=== PATIENT | female | born 1955 | race Caucasian/White ===

== ENCOUNTER → 2017-04-09 15:29 | Outpatient (CLI) | payer OTHER, SELFPAY ==
[2014-09-29 06:40] VITALS: BMI 32.8
[2014-09-29 08:24] VITALS: BP 129/74
--- NOTE | 2017-04-09 15:35 | RAD_ITS ---
STUDY: X-RAY - RIGHT SHOULDER REASON FOR EXAM: Female, 61 years old. Bilateral shoulder pain TECHNIQUE: 4 view(s) of the shoulder. COMPARISON: None. FINDINGS: Normal glenohumeral articulation. Normal acromioclavicular joint. Normal acromion. Normal humeral head and visualized proximal humerus. The soft tissue structures are unremarkable. Normal visualized pulmonary apex. RAD/Shoulder min 2 Views IMPRESSION: Normal x-ray examination of the shoulder. Electronically Signed: Amor Rutherford MD, FACR at 10:25 EST , Service support ,
--- NOTE | 2017-04-09 15:35 | RAD_ITS ---
STUDY: X-RAY - LEFT SHOULDER REASON FOR EXAM: Female, 61 years old. Bilateral shoulder pain TECHNIQUE: 3 view(s) of the shoulder. COMPARISON: None. FINDINGS: Normal glenohumeral articulation. Normal acromioclavicular joint. Normal acromion. Normal humeral head and visualized proximal humerus. The soft tissue structures are unremarkable. Normal visualized pulmonary apex. RAD/Shoulder min 2 Views IMPRESSION: Normal x-ray examination of the shoulder. Electronically Signed: Amor Rutherford MD, FACR at 8:27 EST , Service support ,
== END ==
LOC: MTRAD 15:33
PROVIDERS: Family Provider Family Medicine; PCP Family Medicine; Visit Provider Family Medicine
DX: M25.512 Pain in left shoulder (principal); M25.511 Pain in right shoulder
CPT/HCPCS: 73030

== ENCOUNTER 2017-06-18 12:30 | Outpatient (RCR) | payer OTHER, SELFPAY ==
--- NOTE | 2017-04-20 14:50 | HP.PTEVAL_ITS ---
Patient's Visit Information VANITA BRIGGS is a 61 year old F referred to Physical Therapy by Adolph MAHER with a diagnosis of Bilateral shoulder pain. Date of Evaluation: 04/20/17 Physical Therapist: Walter Gonzáles PT, - Visit Plan Frequency: 2x /Week Duration: 4 Weeks Plan: modlaties ,MANUAL THERAPY ,RTC /SCAPULAR STRENGTHENING,POSTURAL EX'S - Subjective Subjective: This 61 y/o female presents to shoulder pain bilateral right greater than left. Symptoms has had pain for month. No mechanism of injury or trauma,incidous onset. Pain shoulder grossly to lateral deltoid. Symptoms ADL' S ,self hygine ,activities above 90 degrees . Pain affects sleeps. Patient affects ability to perform housework tasks. Seen DR recommended PT . Recommended MEDS.Denies parathesia/tingling. SOCAIL: SINGLE. 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 NEUR0: denies pararhesia/ tingling,reflexes 3/3 C5-6-7. CERVICAL ROM: min flexion ,lateral flexion/ rotation mod ,extension mod loss. PALPATION: mild tender AC. AROM: shoulder flexion R 90 degrees pain L-155 degrees,80 R abd 80 degrees with pain,L. 150 degrees ,. PROM: ER R 70 degrees ,L 90 degrees ,IR R- 60 Degrees pain ,L 70 degrees pain. CAPSUAR: mild/mod right ,Left mild. MMT: infraspiantous / supcaularis 4-/5,supraspinaous 4-/5 pain bilateral greater right,. deltoid 3/5 R ,L 3+/5 pain - Special Tests C/S Radiculapathy - Left Upper limb tension test: Negative C/S Radiculapathy - Right Upper limb tension test: Negative C/S Radiculapathy - Left Spurlings: Negative C/S Radiculapathy - Right Spurlings: Negative C/S Radiculapathy - Left Cervical distraction: Negative C/S Radiculapathy - Right Cervical distraction: Negative C/S Radiculapathy - Left Relief test: Negative C/S Radiculapathy - Right Relief test: Negative C/S Radiculapathy - Valsalva: Negative Cervical Sitting: Protrusion - Symptoms During Testing: No effect Cervical Sitting: Protrusion - Symptoms After Testing: No effect Cervical Sitting: Retraction - Mechanical Response: No effect Cervical Sitting: Retraction - Symptoms During Testing: No effect Cervical Sitting: Retraction - Symptoms After Testing: No effect Cervical Sitting: Retraction-Extension - Mechanical Response: No effect Cerv Sitting: Retraction-Extension - Symptoms During Testing: No effect Cerv Sitting: Retraction-Extension - Symptoms After Testing: No effect Cervical Sitting: Sidebend Right - Mechanical Response: No effect Cervical Sitting: Sidebend Right - Symptoms During Testing: No effect Cervical Sitting: Sidebend Right - Symptoms After Testing: No effect Cervical Sitting: Sidebend Left - Mechanical Response: No effect Cervical Sitting: Sidebend Left - Symptoms During Testing: No effect Cervical Sitting: Sidebend Left - Symptoms After Testing: No effect Cervical Sitting: Rotation Right - Symptoms During Testing: No effect Cervical Sitting: Rotation Right - Symptoms After Testing: No effect Cervical Sitting: Rotation Left - Mechanical Response: No effect Cervical Sitting: Rotation Left - Symptoms During Testing: No effect Cervical Sitting: Rotation Left - Symptoms After Testing: No effect Cervical Sitting: Flexion - Symptoms During Testing: No effect Cervical Sitting: Flexion - Symptoms After Testing: No effect R Shoulder External Rotation Lag Test - RC Tear: Negative R Shoulder Supine Impingement Test - RC Tear: Negative R Shoulder Lift Off Test - Subscapular Tear: Negative R Shoulder Drop Sign - IS Test: Negative R Shoulder Empty Can - SS: Positive R Shoulder Neer - Impingement: Positive R Shoulder Schulz Micha - Impingement: Positive R Shoulder Shrug Sign - OA/Adhesive Capsulitis: Positive L Shoulder External Rotation Lag Test - RC Tear: Negative L Shoulder Supine Impingement Test - RC Tear: Negative L Shoulder Lift Off Test - Subscapular Tear: Negative L Shoulder Drop Sign - IS Test: Negative L Shoulder Empty Can - SS: Negative L Shoulder Neer - Impingement: Positive L Shoulder Schul[place]a - Impingement: Positive - Goals Goal 1:: Independant with HEP Goal Time Frame: 4-6 Weeks Goal 2:: Decrease shoulder pain by 50% or greater to improve function and ADL'S with activities above 90 degrees Goal Time Frame: 4-6 Weeks Goal 3:: Patuent to be Independant with posture for ADL'S Goal Time Frame: 4-6 Weeks Goal 4:: Patient incrases AROM 155 degrees flexion/abduction ,ER 80 degrres to improve function with activities above 90 degrees Goal Time Frame: 2-4 Weeks Goal 5:: Patient to increase strength of RTC 4/5 and deltoid by 4-/5 to improve function with ADLS' Goal Time Frame: 4-6 Weeks Goal 6:: Patient be able to perform ADL'S and activities above 90 degrees with min limiations Goal Time Frame: 4-6 Weeks - Rehabilitation Potential Physical Therapy Diagnosis: This patient appears to have possible imingement right worse than left with tendonesis/tendonitis with poor ROM ,pain ,decrease strength and capsular restriction right. thus impairs ADL'S and housework tasks above 90 degrees Rehabilitation Potential: Good - Anticipated Interventions Patient/Client Instruction: Educate patient on: Condition, Plan of Care For the Purpose of:: To decrease pain, To increase ROM, To improve muscle performance and motor function, To improve ability to perform ADL's, To increase tolerance to activity/condition/position, To improve performance and independence with ADL's, To improve ability of physical actions for home/ community/work/leisure, To improve gait and locomotor functions, To improve health of tissue, To decrease soft tissue restriction, To increase flexibility/ ROM, To assume or resume ADL's, To improve ability to perform tasks related to life management, To improve tolerance to ADL's Therapeutic Exercise to Include: Strength training, Postural training, Flexibilty training, via [employer] Balance Mas, Active ROM, Scapular Strength/ Stabilization Comment: RTC For the Purpose of:: To decrease pain, To increase ROM, To improve nutrient delivery to tissue, To increase oxygenation perfusion, To improve muscle performance and motor function, To improve ability to perform ADL's, To increase tolerance to activity/condition/position, To improve ability of physical actions for home/community/work/leisure, To improve health of tissue, To decrease soft tissue restriction, To increase flexibility/ROM, To improve ability to perform tasks related to life management Manual Therapy Techniques to Include: Mobilization For the Purpose of:: To decrease pain, To increase ROM, To improve nutrient delivery to tissue, To increase oxygenation perfusion, To improve health of tissue, To decrease soft tissue restriction, To increase flexibility/ROM TENS: Yes IF ES: Yes Cryotherapy (ice pack, ice massage): Yes Thermo therapy (hot pack): Yes Ultrasound (thermal/non thermal): Yes For the Purpose of:: To decrease pain, To decrease swelling/inflammation, To increase ROM, To improve health of tissue, To decrease soft tissue restriction Thank you for the opportunity to evaluate your patient. For Medicare and Medicare HMO plans, please review the plan of care and approve it. It will need to be FAXED BACK to us at [phone] for Medicare purposes. Please let me know if there are questions or concerns regarding this plan of care. Physician Signature: Date:
--- NOTE | 2017-06-18 14:24 | HP.PTDCSUM_ITS ---
HP - PT D/C Summary It has been my pleasure to treat VANITA BRIGGS under orders from Adolph Nuñez, for the diagnosis of Bilateral shoulder pain for a total of 12 visit(s) . Discharge Date: 06/18/17 Please see the following information for a summary of their discharge status. - Subjective Subjective: Doing well with shoulders but cont to ave pain in hands and elbows , affects my sleeping - Pain Right Shoulder Pain Intensity (Out of 10): 1 Left Scapula Pain Intensity (Out of 10): 1 Left Shoulder Pain Intensity (Out of 10): 0 - Overall Improvement % Improvement: 70 - Objective Objective/Function: POSTURE: mild foward posture. PALAPTION: tender elbow region. AROM: shoulder flexion/abd 150 degrees ER 85 degrees. MMT: 4/5 RTC , DELTOID 4-/5 PAIN RIGHT. MILD IMPINGEMENT - Goals Goal 1:: Independant with HEP Goal Progress: Goal Met Goal 2:: Decrease shoulder pain by 50% or greater to improve function and ADL'S with activities above 90 degrees Goal Progress: Goal Met Goal 3:: Patuent to be Independant with posture for ADL'S Goal Progress: Goal Met Goal 4:: Patient incrases AROM 155 degrees flexion/abduction ,ER 80 degrres to improve function with activities above 90 degrees Goal Progress: Progressing Goal 5:: Patient to increase strength of RTC 4/5 and deltoid by 4-/5 to improve function with ADLS' Goal 6:: Patient be able to perform ADL'S and activities above 90 degrees with min limiations Goal Progress: Goal Met - Plan Plan: RTD for further assessment especially with elbow and wrist pain -ache - D/C Information Discharge Comments: RTD If there are questions or concerns regarding this patient's physical therapy, please feel free to call me at [phone]. Thank you for the referral of this patient. Sincerely, Walter Gonzáles, PT,
== END 2017-06-18 19:00 | disposition home or self-care (01) ==
LOC: PT 12:30
PROVIDERS: Family Provider Family Medicine; PCP Family Medicine; Visit Provider Family Medicine
DX: M25.512 Pain in left shoulder (principal); M25.511 Pain in right shoulder
CPT/HCPCS: 97014; 97035; 97110; 97162; 97530; G0283

== ENCOUNTER → 2017-07-09 09:30 | Outpatient (CLI) | payer OTHER, SELFPAY ==
--- NOTE | 2017-07-09 10:00 | MRI_ITS ---
STUDY: MRI RIGHT SHOULDER REASON FOR EXAM: Right shoulder pain extending down arm to fingers, no specific injury. TECHNIQUE: Standardized fat and water weighted pulse sequences were obtained in all 3 orthogonal planes. COMPARISON: Radiographs 04/09/2017. FINDINGS: There is mild supraspinatus tendinosis (T2 coronal image 13) without discrete tendon tear. Normal infraspinatus tendon. Normal subscapularis tendon. Normal teres minor tendon. Normal supraspinatus muscle. Normal infraspinatus muscle. Normal subscapularis muscle. Normal teres minor muscle. Normal glenohumeral articulation. There is a small cyst in the greater tuberosity. Normal biceps labral complex. Normal intracapsular long biceps tendon. Normal labrum. Normal capsulo- ligamentous complex. There is acromioclavicular arthrosis with hypertrophic changes effacing the subacromial fat (T2 sagittal images 10, 11). There is a Type I morphology (flat undersurface), with a neutral orientation. There is a small volume of subacromial-subdeltoid bursal fluid (T2 coronal images 7-16). Normal visualized coracohumeral and coracoacromial ligaments. Normal deltoid muscle. Normal trapezius muscle. MRI/Upper Ext Joint Only(Routine) IMPRESSION: Mild supraspinatus tendinosis without demonstrated rotator cuff tear. Acromioclavicular arthrosis. Mild subacromial-subdeltoid bursitis. Electronically Signed: Mike Lainez MD at 12:17 EDT Tel , Service support ,
--- NOTE | 2017-07-09 10:45 | MRI_ITS ---
STUDY: MRI LEFT SHOULDER REASON FOR EXAM: Left shoulder pain extending down arm into fingers. TECHNIQUE: Standardized fat and water weighted pulse sequences were obtained in all 3 orthogonal planes. COMPARISON: Radiographs 04/09/2017. FINDINGS: There is mild supraspinatus tendinosis (T2 coronal images 11, 12) without discrete tendon tear. Normal infraspinatus tendon. Normal subscapularis tendon. Normal teres minor tendon. Normal supraspinatus muscle. Normal infraspinatus muscle. Normal subscapularis muscle. Normal teres minor muscle. There is a small subchondral cyst in the posterior glenoid. There is a small cyst in the posterior aspect of the greater tuberosity. Normal biceps labral complex. Normal intracapsular long biceps tendon. Normal labrum. Normal capsulo- ligamentous complex. There is acromioclavicular arthrosis with mild hypertrophic changes effacing the subacromial fat (T2 sagittal images 10, 11). There is a Type I morphology (flat undersurface), with a neutral orientation. There is a small volume of subacromial-subdeltoid bursal fluid (T2 coronal images 6-15). Normal visualized coracohumeral and coracoacromial ligaments. Normal deltoid muscle. Normal trapezius muscle. MRI/Upper Ext Joint Only(Routine) IMPRESSION: Mild supraspinatus tendinosis without demonstrated rotator cuff tear. Acromioclavicular arthrosis. Mild subacromial-subdeltoid bursitis. Electronically Signed: Mike Lainez MD at 12:25 EDT Tel , Service support ,
== END ==
PROVIDERS: Family Provider Family Medicine; PCP Family Medicine; Visit Provider Family Medicine
DX: M25.511 Pain in right shoulder (principal); M25.512 Pain in left shoulder
CPT/HCPCS: 73221

== ENCOUNTER → 2017-12-31 09:55 | Outpatient (CLI) | payer OTHER, SELFPAY ==
[2017-12-31 12:34] LABS: Anion Gap 11 (5-15); BUN 18 mg/dL (7-18); BUN/Creat Ratio 21.6 RATIO (10-20); Calcium,Total 9.1 mg/dL (8.5-10.1); Chloride 102 mmol/L (98-107); Cholesterol 233 mg/dL (200); Creatinine, Serum 0.83 mg/dL (0.55-1.02); EST Glomerular Filtration Rate 74 mL/min (>60); Est Glom Filt Rate - Afr Amer 90 mL/min (>60); Glucose 141 mg/dL (74-106); High Density Lipoprotein 34 mg/dL; Sodium Level 137 mmol/L (136-145); Triglycerides 305 mg/dL; Very Low Density Lipoprotein 61 mg/dL (5-40)
== END ==
PROVIDERS: Family Provider Family Medicine; PCP Family Medicine; Visit Provider Family Medicine
DX: R73.01 Impaired fasting glucose (principal); I10 Essential (primary) hypertension
CPT/HCPCS: 36415; 80048; 80061

== ENCOUNTER → 2019-03-22 09:08 | Outpatient (CLI) | payer OTHER, SELFPAY ==
[2019-03-22 10:19] LABS: Hemoglobin A1c 7.2 % (4.2-6.3)
[2019-03-22 10:44] LABS: Anion Gap 7 (5-15); BUN 23 mg/dL (7-18); BUN/Creat Ratio 27.2 RATIO (10-20); Calcium,Total 9.3 mg/dL (8.5-10.1); Chloride 103 mmol/L (98-107); Cholesterol 231 mg/dL (200); Creatinine, Serum 0.85 mg/dL (0.55-1.02); EST Glomerular Filtration Rate 73 mL/min (>60); Est Glom Filt Rate - Afr Amer 88 mL/min (>60); Glucose 174 mg/dL (74-106); High Density Lipoprotein 36 mg/dL; Potassium 3.9 mmol/L (3.5-5.1); Sodium Level 136 mmol/L (136-145); Triglycerides 264 mg/dL; Very Low Density Lipoprotein 53 mg/dL (5-40)
== END ==
LOC: MFPLAB 09:11
PROVIDERS: PCP Family Medicine; Visit Provider Family Medicine
DX: E11.9 Type 2 diabetes mellitus without complications (principal); I10 Essential (primary) hypertension
CPT/HCPCS: 36415; 80048; 80061; 83036

== ENCOUNTER → 2022-02-18 | Outpatient (CLI) | payer OTHER, SELFPAY ==
[2022-02-18 12:36] LABS: Absolute Lymphocyte Count 1.68 X10^3/uL (0.83-4.51); Absolute Neutrophil Count 4.3 X10^3/uL (2.0-7.7); Basophil# 0.08 X10^3/uL; Basophil% 1.2 % (0-1); Eosinophil# 0.25 X10^3/uL; Eosinophils% 3.6 % (0-5); Hematocrit 44.9 % (37-47); Hemoglobin 15.4 g/dL (12.0-15.0); Lymphocyte # 1.68 X10^3/ul (0.83-4.51); Lymphocyte % 24.3 % (19-41); Mean Corp Hgb Conc 34.3 g/dL (32-36); Mean Corpuscular Hgb 28.5 pg (27.0-32.0); Mean Corpuscular Volume 83.1 fL (81-99); Mean Platelet Vol. 9.7 fl (6.2-12.0); Monocyte# 0.56 X10^3/uL; Monocyte% 8.1 % (0-10); NRBC Flagged by Analyzer 0 % (0-5); Neutrophil # 4.34 X10^3/uL (2.7-7.7); Neutrophil % 62.7 % (47-70); Platelet Count 295 K/mm3 (150-450); RBC Distribution Width SD 39.1 fl (35.1-43.9); White Blood Count 6.9 K/mm3 (4.4-11.0)
[2022-02-18 13:04] LABS: Anion Gap 10 (5-15); BUN 18 mg/dL (7-18); BUN/Creat Ratio 21.4 RATIO (10-20); Calcium,Total 9.5 mg/dL (8.5-10.1); Chloride 102 mmol/L (98-107); Cholesterol 230 mg/dL (200); Creatinine, Serum 0.84 mg/dL (0.55-1.02); EST Glomerular Filtration Rate 72 mL/min (>60); Est Glom Filt Rate - Afr Amer 88 mL/min (>60); Glucose 158 mg/dL (74-106); High Density Lipoprotein 41 mg/dL; Potassium 4.1 mmol/L (3.5-5.1); Sodium Level 138 mmol/L (136-145); Thyroid Stim Hormone (TSH) 0.66 uIU/mL (0.358-3.74); Triglycerides 214 mg/dL; Very Low Density Lipoprotein 43 mg/dL (5-40)
[2022-02-18 13:11] LABS: Microalbumin,Random Urine 20.4 mg/L (NO RANGE EST.); Microalbumin:Creatinine Ratio 11.5 mg/g CRE (<30 mg/g CRE)
== END | disposition home or self-care (01) ==
LOC: MTLAB 10:11
PROVIDERS: PCP Family Medicine; Referring Provider Family Medicine; Visit Provider Family Medicine
DX: E11.9 Type 2 diabetes mellitus without complications (principal); I10 Essential (primary) hypertension; R53.83 Other fatigue
CPT/HCPCS: 36415; 80048; 80061; 82043; 82570; 84443; 85025

== ENCOUNTER → 2022-08-04 | Outpatient (CLI) | payer OTHER, SELFPAY ==
[2022-08-04 11:09] LABS: Anion Gap 6 (5-15); BUN 21 mg/dL (7-18); BUN/Creat Ratio 23.6 RATIO (10-20); Calcium,Total 9.3 mg/dL (8.5-10.1); Chloride 104 mmol/L (98-107); Cholesterol 132 mg/dL (200); Creatinine, Serum 0.89 mg/dL (0.55-1.02); EST Glomerular Filtration Rate 68 mL/min (>60); Est Glom Filt Rate - Afr Amer 82 mL/min (>60); Glucose 173 mg/dL (74-106); High Density Lipoprotein 39 mg/dL; Potassium 3.9 mmol/L (3.5-5.1); Sodium Level 137 mmol/L (136-145); Triglycerides 182 mg/dL; Very Low Density Lipoprotein 36 mg/dL (5-40)
== END | disposition home or self-care (01) ==
LOC: MTLAB 08:57
PROVIDERS: PCP Family Medicine; Referring Provider Family Medicine; Visit Provider Family Medicine
DX: E11.9 Type 2 diabetes mellitus without complications (principal)
CPT/HCPCS: 36415; 80048; 80061

== ENCOUNTER → 2022-12-30 | Outpatient (CLI) | payer OTHER, SELFPAY ==
[2022-12-30 12:56] LABS: Hemoglobin A1c 7.4 % (3.8-5.6)
== END | disposition home or self-care (01) ==
LOC: MTLAB 10:21
PROVIDERS: PCP Family Medicine; Referring Provider Family Medicine; Visit Provider Family Medicine
DX: E11.9 Type 2 diabetes mellitus without complications (principal)
CPT/HCPCS: 36415; 83036

== ENCOUNTER → 2023-12-17 | Outpatient (CLI) | payer OTHER, SELFPAY ==
[2023-12-17 12:52] LABS: Anion Gap 5 (5-15); BUN 20 mg/dL (7-18); BUN/Creat Ratio 24.2 RATIO (10-20); Calcium,Total 9.5 mg/dL (8.5-10.1); Chloride 104 mmol/L (98-107); Cholesterol 181 mg/dL (200); Creatinine, Serum 0.82 mg/dL (0.55-1.02); EST Glomerular Filtration Rate 74 mL/min (>60); Est Glom Filt Rate - Afr Amer 89 mL/min (>60); Glucose 162 mg/dL (74-106); High Density Lipoprotein 43 mg/dL; Potassium 4.1 mmol/L (3.5-5.1); Sodium Level 138 mmol/L (136-145); Triglycerides 204 mg/dL; Very Low Density Lipoprotein 41 mg/dL (5-40)
[2023-12-17 13:10] LABS: Hemoglobin A1c 7.6 % (3.8-5.6)
== END | disposition home or self-care (01) ==
PROVIDERS: PCP Family Medicine; Referring Provider Family Medicine; Visit Provider Family Medicine
DX: Z00.00 Encounter for general adult medical examination without abnormal findings (principal); R73.01 Impaired fasting glucose
CPT/HCPCS: 36415; 80048; 80061; 83036

== ENCOUNTER → 2025-03-01 | Outpatient (CLI) | payer OTHER, SELFPAY ==
--- OUTSIDE RECORDS SUMMARY | 2025-03-01 16:19 | XMS RPT_ITS | CCD ---
Author Organization [facility] ion [facility] Care Team Providers Care Six Sigma Black Belt Engineer Name Role Phone Ivanauskas, Saulius Unavailable Unavailable Ivanauskas, Saulius Unavailable Unavailable No Doctor Assigned, Nodr Unavailable Unavail able Adolph Frenhc Attending Unavailable French, Adolph Referring Unavailable French, Adolph Primary Care Unavailable FRENCH, ADOLPH Hamilton Consulting Unavailable ANTONI MUSE JR Attending Unavailable ANTONI MUSE JR Primary Care Unavailable ANTONI MUSE JR Admitting Unavailable GILLIAN, ADOLPH Hamilton Referring Unavailable PROVIDER, UNKNOWN Consulting Unavailable FRENCH, ADOLPH Hamilton Attending Unavailable FRENCH, ADOLPH Hamilton Consulting Unavailable FRENCH, ADOLPH Hamilton Primary Care Unavailable FRENCH, ADOLPH Hamilton Admitting Unavailable PROVIDER, UNKNOWN Consulting Unavailable FRENCH, ADOLPH Hamilton Consulting Unavailable FRENCH, ADOLPH Hamilton Primary Care Unavailable FRENCH, ADOLPH Hamilton Admitting Unavailable FRENCH, ADOLPH Hamilton Attending Unavailable PROVIDER, UNKNOWN Consulting Unavailable FRENCH, ADOLPH Hamilton Primary Care Unavailable SARINA MARVIN Attending Unavailable Allergies Allergy Classification Reported Allergen(s) Allergy Type Date of Onset Reaction(s) Facility (2 sources) Sulfamethoxazole Drug Allergy 5 [facility] (2 sources) Trimethoprim Drug Allergy [address] [place] [address] (1 source) Sulfamethoxazole Drug Allergy 5 [facility] Repository (1 source) Trimethoprim Drug Allergy [address] [place] [address] Repository (1 source) Shrimp product; Translations: [SHRIMP] Food allergy (disorder) [facility] Repository Medications Current Medications Medication Drug Class(es) Dates Sig (Normalized) Sig (Original) ciprofloxacin 500 mg oral tablet (2 sources) Quinolone Antimicrobial Start: 09-29-2014 take 500 mg by mouth twice daily Ciprofloxacin Hcl Active 500 MG PO TWICE A DAY September 29, 2014 12:00am lisinopril 10 mg oral tablet (2 sources) Angiotensin Converting Enzyme Inhibitor Start: 09-29-2014 take 10 mg by mouth once daily Lisinopril Active 10 MG PO DAILY September 29, 2014 12:00am omeprazole 20 mg delayed release oral capsule (2 sources) Proton Pump Inhibitor Start: 06-20-2013 take 20 mg by mouth once daily Omeprazole Active 20 MG PO DAILY June 20, 2013 12:00am ondansetron 4 mg disintegrating oral tablet (2 sources) Serotonin-3 Receptor Antagonist Start: 09-29-2014 take 4 mg by mouth every eight hours as needed Ondansetron Active 4 MG PO EVERY 8 HOURS NEEDED September 29, 2014 12:00am phenazopyridine hydrochloride 200 mg oral tablet (2 sources) Start: 09-29-2014 take 1 tablet by mouth every eight hours Phenazopyridine (Pyridium) 200 MG tablet Active 200 MG PO EVERY 8 HOURS September 29, 2014 12:00am Problems Problem Classification Problem Date Documented Date Episodic/Chronic Diabetes mellitus without complication (3 sources) Impaired fasting glucose; Translations: [Impaired fasting glucose] Onset: 12-08-2024 Episodic Genitourinary symptoms and ill-defined conditions (1 source) Dysuria; Translations: [Burning with urination] Onset: 12-15-2024 Episodic Immunizations and screening for infectious disease (1 source) Contact with and (suspected) exposure to infections with a predominantly sexual mode of transmission; Translations: [Possible exposure to STI] Onset: 12-15-2024 Episodic Inflammatory diseases of female pelvic organs (1 source) Acute vaginitis; Translations: [Acute vaginitis] Onset: 12-15-2024 Episodic Other screening for suspected conditions (not mental disorders or infectious disease) (3 sources) Encounter for screening mammogram for malignant neoplasm of breast; Translations: [Encounter for screening mammogram for malignant neoplasm of breast] Onset: 12-15-2024 Episodic Results Test Name Value Interpretation Reference Range Facil ity 3D MAMM BILAT SCREENon 12-15 3D MAMM BILAT SCREEN [address] ? [place] [address] ? Patient: VANITA SANABRIA Phone#: : 1955 Age: 69 Gender: F Pt. Type: Out Account: [id number] Location: 052 Ordering: ADOLPH FRENCH Exam Date: 12/15/2024/12:53 Family Phys: Charge Code: [id number] Physician: Attala Order #: [id number] Dose#: PROCEDURE: BILATERAL SCREENING BREAST TOMOSYNTHESIS MAMMOGRAM WITH CAD COMPARISON: [facility], 3D BILAT SCREEN, 12/15/2023, 10:10. [facility], 3D BILAT SCREEN, 03/14/2022, 13:07. INDICATIONS: Screening. BREAST COMPOSITION: There are scattered areas of fibroglandular density FINDINGS: DIAGNOSTIC CATEGORY 1--NEGATIVE NO CHANGE FROM COMPARISON ASSESSMENT. RIGHT BREAST: No significant suspicious finding. No significant change has occurred. LEFT BREAST: No significant suspicious finding. No significant change has occurred. RECOMMENDATIONS: ROUTINE MAMMOGRAM AND CLINICAL EVALUATION IN 12 MONTHS. PLEASE NOTE: CLICK HERE IF HIGH RISK A NORMAL MAMMOGRAM DOES NOT EXCLUDE THE POSSIBILITY OF BREAST CANCER. A CLINICALLY SUSPICIOUS PALPABLE LUMP SHOULD BE BIOPSIED. THIS FACILITY UTILIZES A REMINDER SYSTEM TO ENSURE THAT ALL PATIENTS RECEIVE REMINDER LETTERS FOR APPOINTMENTS. THIS INCLUDES REMINDERS FOR ROUTINE MAMMOGRAMS, DIAGNOSITC MAMMOGRAMS, OR OTHER BREAST IMAGING INTERVENTIONS WHEN APPROPRIATE. THIS PATIENT WILL BE PLACED IN THE APPROPRIATE REMINDER SYSTEM. Dictated by: Itzel Peck MD on 12/15/2024 at 16:39 Approved by: Itzel Peck MD on 12/15/2024 at 16:43 Normal [facility] BACTERIAL VAGINOSIS NAATon 1 Lactobacillus crispatus+gasseri+je nsenii + Gardnerella vaginalis + Atopobium vaginae rRNA PARISA+probe Ql (Vag fld) Not detected Normal Not detected [facility] Comment on above: Order Comment: Speci men Type: SWAB Ordering Facility: [facility] Address: [address] [place] [address] Performed By: #### C VTV, BVAMP #### [facility] CLIA [id number] [address] [place] [address] [place] Bacteria Ur Culton Bacteria identified Cx Nom (U) ORGANISM ID: 1 <10,000 CFU/ml Normal urogenital juan francisco Normal [facility] Comment on above: Performed By: #### 6 30-4 #### [facility] CLIA [id number] [address] [place] [address] OF [place] LYDIA/TRICHOMONAS NAATon 1 C. glabrata RNA PARISA+probe Ql (Vag fld) Not detected Normal Not detected [facility] Comment on above: Order Comment: Speci men Type: SWAB Ordering Facility: [facility] Address: [address] [place] [address] Performed By: #### C VTV, BVAMP #### [facility] CLIA [id number] [address] [place] [address] OF [place] Lydia sp DNA PARISA+probe Ql (Vag fld) Not detected Normal Not detected [facility] Comment on above: Order Comment: Speci men Type: SWAB Ordering Facility: [facility] Address: [address] [place] [address] Result Comment: The Lydia species group target includes C. albicans, C. tropicalis, C. parapsilosis, and C. dubliniensis. Performed By: #### C VTV, BVAMP #### [facility] CLIA [id number] [address] [place] [address] T. vaginalis DNA PARISA+probe Ql (Unsp spec) Not detected Normal Not detected [facility] Comment on above: Order Comment: Speci men Type: SWAB Ordering Facility: [facility] Address: [address] [place] [address] Performed By: #### C VTV, BVAMP #### [facility] CLIA [id number] [address] [place] [address] OF [place] CNOVon 12-15-2024 CNOV Office Visit ([facility]) VANITA SANABRIA ([id number]) 1955 F Date Time Provider Department 12/15/24 1:45 PM SARINA MRAVIN During your visit today, we recorded the following information about you: Temperature Pulse Respiration Blood pressure 98.9 degrees 95/minute 20/minute 129/86 Weight 86 kg Sarina Marvin APRN.TERRESTRIAL ECOLOGIST 12/15/2024 2:55 PM Signed [facility] Subjective Vanita Sanabria is a 69 year old female. Patient presents with: Vaginal Problem HPI Review of Systems PAST MEDICAL HISTORY Diagnosis Date Hypertension No pertinent past medical history healthy PAST SURGICAL HISTORY Procedure Laterality Date CHOLEYCYSTOGRAM GALL BLADDER LIG/TRNSXJ FLP TUBE ABDL/VAG APPR UNI/BI ALLERGIES Patient has no known allergies. MEDICATIONS lisinopril-hydroCHLOR Othiazide (ZESTORETIC) 20-12.5 mg per tablet Take 1 tablet by mouth once daily. rosuvastatin (CRESTOR) 10 mg tablet Take 1 tablet by mouth once daily. metFORMIN (GLUCOPHAGE) 1,000 mg tablet Take 1,000 mg by mouth daily with breakfast. fluconazole (DIFLUCAN) 150 mg tablet Take 1 tablet by mouth one time only for 1 dose. Not completely resolved at 72 hours take another dose. ranitidine (ZANTAC) 150 mg tablet Take 1 tablet by mouth twice daily. dicyclomine (BENTYL) 20 mg tablet Take 1 tablet by mouth every 6 hours. FAMILY HISTORY Problem Relation Age of Onset Heart Mother Hypertension Father Diabetes Sister Diabetes Brother SOCIAL HISTORY[1] Objective BP 129/86 Pulse 95 Temp 37.2 ?C (98.9 ?F) Resp 20 Wt 86 kg (189 lb 9.5 oz) LMP 12/08/2010 SpO2 97% BMI 30.14 kg/m? Physical Exam Constitutional: General: She is not in acute distress. Appearance: Normal appearance. She is normal weight. She is not ill-appearing or toxic-appearing. HENT: Head: Normocephalic and atraumatic. Cardiovascular: Rate and Rhythm: Normal rate and regular rhythm. Heart sounds: Normal heart sounds. Pulmonary: Effort: Pulmonary effort is normal. Breath sounds: Normal breath sounds. Abdominal: General: There is no distension. Palpations: There is no mass. Tenderness: There is no abdominal tenderness. There is no right CVA tenderness, left CVA tenderness, guarding or rebound. Hernia: No hernia is present. Neurological: Mental Status: She is alert. { 1. Burning with urination (R30.0) 2. Acute vaginitis (N76.0) 3. Possible exposure to STI (Z20.2) - Urine dipstick showed leukocytes, and blood; no nitrites present. Dip and HPI consistent with vaginitis. - Burning likely due to vaginal irritation from yeast infection rather than UTI. - Urine culture and vaginal swabs obtained; will call with results and adjust treatment if necessary. - Start oral Diflucan for yeast infection; instructed to take one dose now and a second dose in 72 hours if symptoms are not completely resolved. - No signs of pylonephritis, acute surgical abdomen, or pelvic pain,. - Educated on the risks of unnecessary antibiotic use potentially worsening yeast infection. - Will call with preliminary urine culture and vaginal swab results tomorrow; will initiate antibiotics if urine culture is positive. and Recording using [employer] software for draft documentation of the visit was discussed with the patient/authorized inside sales representative; all questions welcomed and answered. Patient/authorized inside sales representative agreed to proceed History and Record Review External record(s) reviewed: prior outpatient record. Findings from review of outpatient records: Previous medical history Disposition The patient was discharged. [1] Social History Tobacco Use Smoking status: Never Smokeless tobacco: Never Substance Use Topics Alcohol use: No Drug use: No Christiane Foster LPN 12/15/2024 4:16 PM Signed Addended by: CHRISTIANE FOSTER on: 12/15/2024 04:16 PM Modules accepted: Orders Allergies As of Date: 12/15/2024 (No Known Allergies) Date Reviewed: 12/15/2024 Reviewed by: Christiane Foster LPN - Fully Assessed Reason for Visit: Vaginal Problem [117] Primary Visit Diagnosis:Burning with urination [R30.0] Other Visit Diagnoses:Acute vaginitis [N76.0] Possible exposure to STI [Z20.2] Order(s):UA DIP, URINE (POC) [2850689] Order #: [id number]. #:[id number] fluconazole (DIFLUCAN) 150 mg tabletTake 1 tablet by mouth one time only for 1 dose. Not completely resolved at 72 hours take another dose.Disp: 2 tabletRfl: 0 BACTERIAL VAGINOSIS NAAT [SQBVAMP] Order #: [id number]. #:[id number] BACTERIAL CULTURE, URINE [SQURCUL] Order #: [id number]. #:[id number] LYDIA/TRICHOMONAS NAAT [SQCVTV] Order #: [id number]. #:[id number] Prescriptions as of 12/15/2024 - lisinopril-hydroCHLOR Othiazide (ZESTORETIC) 20-12.5 mg per tablet Take 1 tablet by mouth once daily. - rosuvastatin (CRESTOR) 10 (more content not included)... Normal [facility] with eGFRon 12-08-2024 AGE 69 years Normal [facility] Comment on above: Performed By: #### 2 12694 ####[address] [address] Albumin [Mass/Vol] 3.9 g/dL Normal 3.4 - 5.0 [facility] Comment on above: Performed By: #### 2 04970 ####[address] [address] Albumin/Globulin [Mass ratio] 1.4 {ratio} Normal 0.9 - 1.6 [facility] Comment on above: Performed By: #### 2 71071 ####[facility],[address] [place] [address] ALK PHOS 116 U/L Normal 46 - 116 [facility] Comment on above: Performed By: #### 2 10730 ####[address] [address] ALT [Catalytic activity/Vol] 18 U/L Normal 16 - 63 [facility] Comment on above: Performed By: #### 2 30445 ####[address] [address] Anion gap [Moles/Vol] 11 mmol/L Normal 10 - 20 [facility] Comment on above: Performed By: #### 2 24225 ####[facility],[address] [place] [address] AST [Catalytic activity/Vol] 9 U/L Low 13 - 39 [facility] Comment on above: Performed By: #### 2 55094 ####[facility],[address] [place] [address] B/C RATIO 25 ratio Normal 0 - 30 [facility] Comment on above: Performed By: #### 2 22970 ####[facility],[address] [place] [address] Bilirubin [Mass/Vol] 1.0 mg/dL Normal 0.2 - 1.0 [facility] Comment on above: Performed By: #### 2 38826 ####[facility],[address] [place] [address] Calcium [Mass/Vol] 9.0 mg/dL Normal 8.5 - 10.1 [facility] Comment on above: Performed By: #### 2 78620 ####[facility],[address] [place] [address] Chloride [Moles/Vol] 102 mmol/L Normal 98 - 107 [facility] Comment on above: Performed By: #### 2 07000 ####[facility],[address] [place] [address] CMP with eGFR Normal [facility] Comment on above: Result Comment: COMP REHENSIVE METABOLIC PANEL Performed By: #### 2 88091 ####[facility],[address] [place] [address] CO2 [Moles/Vol] 31.3 mmol/L Normal 21.0 - 32.0 [facility] Comment on above: Performed By: #### 2 06411 ####[facility],[address] [place] [address] Creatinine [Mass/Vol] 0.79 mg/dL Normal 0.55 - 1.02 [facility] Comment on above: Performed By: #### 2 65418 ####[facility],[address] [place], [place] [address] GFR/1.73 sq M.predicted among non-blacks MDRD (S/P/Bld) [Vol rate/Area] mL/min/{1.73_m2} Normal 60 - 999 [facility] Comment on above: Performed By: #### 2 40012 ####[facility],[address] [place] [address] Result Comment: ACCO RDING TO THE NATIONAL KIDNEY DISEASE EDUCATION PROGRAM(NKDE), A NORMAL eGFR IS A VALUE GREATER THAN OR EQUAL TO 60 ML/MIN/1.73 SQ METERS. CHRONIC KIDNEY DISEASE: <60mL/MIN/1.73 SQ METERS KIDNEY FAILURE: <15mL/MIN/1.73 SQ METERS THIS TEST SHOULD ONLY BE USED FOR PATIENTS 18 YEARS OF AGE AND OLDER. Globulin (S) [Mass/Vol] 2.8 g/dL Normal 1.5 - 3.8 [facility] Comment on above: Performed By: #### 2 63678 ####[facility],[address] [place], [place] [address] Glucose [Mass/Vol] 175 mg/dL High 74 - 106 [facility] Comment on above: Performed By: #### 2 82875 ####[facility],[address] [place], [place] [address] Potassium [Moles/Vol] 3.9 mmol/L Normal 3.5 - 5.1 [facility] Comment on above: Performed By: #### 2 26168 ####[address] [address] Protein [Mass/Vol] 6.7 g/dL Normal 6.4 - 8.2 [facility] Comment on above: Performed By: #### 2 52419 ####[facility],[address] [place] [address] Sodium [Moles/Vol] 140 mmol/L Normal 136 - 145 [facility] Comment on above: Performed By: #### 2 97642 ####[facility],[address] [place] [address] Urea nitrogen [Mass/Vol] 20 mg/dL High 7 - 18 [facility] Comment on above: Performed By: #### 2 40028 ####[facility],[address] [place] [address] HEMOGLOBIN A1C (POM)on 12-08 Glucose [Mass/Vol] 174.3 mg/dL High 0.0 - 0.0 [facility] Comment on above: Result Comment: BLDo HEMOGLOBIN A1C REFERENCE RANGESBLDo Suggested Diagnosis HbA1c(%) HbA1C (mmol/mol Diabetic >/=6.5 >/=48 Prediabetes 5.7 - 6.4 39 - 47 Normal <5.7 <39 Performed By: #### 2 09157 #### [facility],[address] [place] [address] HbA1c (Bld) [Mass fraction] 7.7 % High 0.0 - 6.5 [facility] Comment on above: Performed By: #### 2 99229 #### [facility],[address] [place] [address] LIPID PROFILEon 12-08-2024 Cholesterol [Mass/Vol] 166 mg/dL Normal 0 - 240 [facility] Comment on above: Performed By: #### 2 34836 #### [facility],[address] [place] [address] Cholesterol in HDL [Mass/Vol] 44 mg/dL Normal 40 - 60 [facility] Comment on above: Performed By: #### 2 40367 #### [facility],[address] [place] [address] Cholesterol in LDL [Mass/Vol] 90 mg/dL Normal 0 - 129 [facility] Comment on above: Performed By: #### 2 63622 #### [facility],[address] [place] [address] Cholesterol.total/Ch olesterol in HDL [Mass ratio] 3.8 {ratio} Normal 0.0 - 5.0 [facility] Comment on above: Performed By: #### 2 84302 #### [facility],[address] [place] [address] Lipid 1996 panel Normal [facility] Comment on above: Result Comment: LIPI D PROFILE Performed By: #### 2 95469 #### [facility],[address] [place] [address] Triglyceride [Mass/Vol] 158 mg/dL High 0 - 150 [facility] Comment on above: Performed By: #### 2 42865 #### [facility],[address] [place] [address] CHEST 2 VIEWSon 02-01-2024 CHEST 2 VIEWS [place] [address] Patient: VANITA SANABRIA Phone#: : 1955 Age: 68 Gender: F Pt. Type: ER Account: [id number] Location: [facility] Ordering: ANTONI MUSE Exam Date: 02/01/2024/14:42 Family Phys: ADOLPH FRENCH Charge Code: [id number] Physician: Attala Order #: [id number] Dose#: PROCEDURE: X-RAY CHEST 2 VIEWS COMPARISON: [facility], XR, CHEST 2 VIEWS, 03/16/2023, 9:10. INDICATIONS: Cough. FINDINGS: LUNGS: Normal. No significant pulmonary parenchymal abnormalities. VASCULATURE: Normal. Unremarkable pulmonary vasculature. CARDIAC: Normal. No cardiac silhouette abnormality or cardiomegaly. MEDIASTINUM: Normal. No visible mass or adenopathy. PLEURA: Normal. No effusion or pleural thickening. BONES: Normal. No fracture or visible bony lesion. OTHER: Negative. CONCLUSION: No acute disease. No significant change has occurred. 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 Allergies Given (Tessalon) PO 200 verified and confirmed 5 rights. Information reviewed with patient 14:53 02/01/2024 mg (NOW x1) including reason for taking this medication. - 14:53 Carly Kaplan, YumiN. R.N. Scanned 1 of 1 Normal [facility] ED NURSES CLINICAL NOTEon ED NURSES CLINICAL NOTE Nurse Narrative Nurse Clinical Narrative [address] [address] [id number] 02/01/2024 Patient: VANITA SANABRIA Sex: Female : 1955 Age: 68y Disposition: Discharge to Home Disposition Decision Time: 15:13 02/01/2024 Departure Time: 15:30 02/01/2024 TRIAGE Arrived by private vehicle. Historian: patient. Patient has a primary care physician. Primary physician (Dr. Neff). Triage time: 12:06 02/01/2024. Acuity: LEVEL 4. Chief Complaint: FEVER, HEADACHE, EAR PAIN, SINUS PAIN, NASAL CONGESTION and SORE THROAT. Alert. Onset. (about 1 week). ( Denies chest pain, SOB, nausea or vomiting.). SEPSIS SCREEN: NEGATIVE. SIRS criteria negative. No possible sources of infection. -- 12:15 02/01/24 MARIE Giraldo R.N. 12:12 02/01/24. BP: 149/109 taken on right arm, while sitting. MAP: 122. HR: 96. Regular and normal rate. RR: 18. Regular and unlabored. O2 saturation: 97% on room air. Temperature: 98.2 F (oral). Pain level now 5/10. -- 12:13 02/01/24 MARIE Giraldo R.N. Measurements: 12:14 02/01/24 Wt: 83.9 kg, Ht/Emanuel: 67.0 in, BMI: 28.97 -- 12:14 02/01/24 MARIE Giraldo R.N. Medications: metFORMIN 500 mg tablet: 500 mg once a day . -- 12:07 02/01/24 MARIE Giraldo R.N. 1 of 4 Nurse Narrative metFORMIN 500 mg tablet: 1000 mg once a day . -- 12:02/01/24 MARIE Giraldo R.N. lisinopriL 20 mg-hydrochlorothiazid e 12.5 mg tablet: 1 tab once a day . -- 12:10 02/01/24 MARIE Giraldo R.N. rosuvastatin 10 mg tablet: 10 mg once a day . -- 12:11 02/01/24 MARIE Giraldo R.N. Allergies: no known drug allergies -- 12:07 02/01/24 MARIE Giraldo R.N. Problems: Hypertension -- 12:08 02/01/24 MARIE Giraldo R.N. 12:02/01/24. Preferred pharmacy ([facility]. -- 12:15 02/01/24 MARIE Giraldo R.N. ADDITIONAL SURGERIES: Knee Surgery -- 12:02/01/24 MARIE Giraldo R.N. Cholecystectomy -- 12:02/01/24 MARIE Giraldo R.N. History 12:02/01/24. SOCIAL HX: Never smoker. No alcohol use or drug use. The patient has not traveled outside the [place] Infectious disease exposure: No infectious disease exposure. ABUSE ASSESSMENT: The patient answered yes to the question(s) Do you feel safe in your home? and no to the question(s) Are you afraid to go home?. SELF HARM ASSESSMENT: Self harm assessment was performed. The patient answered no to the question(s) Have you recently felt down, depressed, or hopeless? and Do you have thoughts of harming or killing yourself?. FALL RISK ASSESSMENT: Fall risk assessment completed. Risk factors identified include patient age greater than 65 years. Fall interventions initiated. Patient identified as a fall risk by ID band. -- 12:15 02/01/24 MARIE Giraldo R.N. 2 of 4 Nurse Narrative Interventions 12:06 02/01/24. Identification band and fall band on patient. Advanced care plan (Full Code). -- 12:15 02/01/24 MARIE Giraldo R.N. PHYSICAL ASSESSMENT 14:35 02/01/24. Ambulatory to room. GENERAL / NEURO / PSYCH: Alert. Oriented X 4. Appears in no acute distress. HEENT: Sinus tenderness present. Runny nose. Pharyngeal erythema. RESPIRATORY: Respirations not labored. Nonproductive cough. SKIN: Skin is warm and dry. -- 14:50 02/01/24 MARIE Peterson R.N. 14:35 02/01/24. RESPIRATORY: Chest nontender. Breath sounds within normal limits. -- 15:00 02/01/24 MARIE Peterson R.N. 14:36 02/01/24. ( Pt has been sick with sinus congestion, dry hacking cough, for the past week. Pt is concerned for pneumonia.). -- 15:01 02/01/24 MARIE Peterson R.N. NURSING PROGRESS NOTES 13:44 02/01/24. ( Pt to ER 5, physician and primary nurse notified.). -- 13:44 02/01/24 MARIE Giraldo R.N. 14:45 02/01/24. Two patient identifiers checked. Call light placed in reach. Side rails up x 2. Bed placed in lowest position. Brakes of bed on. -- 15:00 02/01/24 MARIE Peterson R.N. 14:53 02/01/24. Benzonatate (Tessalon) PO 200 mg given. Allergies verified and confirmed 5 rights. Information reviewed with patient including reason for taking this medication. -- 14:53 02/01/24 MARIE Peterson R.N. DISPOSITION / DISCHARGE 15:30 02/01/24. No learning barriers present. Discharge instructions provided and reviewed with the patient. Reviewed medication(s) side effects, precautions, dosing and course information. Prescription(s) sent electronically to pharmacy. Patient verbalized understanding. Written instructions provided in Croatian. The patient was discharged by the physician. The patient was discharged home. The patient left ambulatory and via private vehicle. Patient driving. -- 15:36 02/01/24 MARIE Peterson R.N. 15:30 02/01/24. Condition at departure: improved. -- 15:36 02/01/24 MARIE Peterson R.N. Departure time: 15:30 02/01/2024. -- 18:25 02/01/24 EST Tatianna (more content not included)... Normal [facility] ED ORDER SHEET (CPOE ONLY)on 02-01-2024 ED ORDER SHEET (CPOE ONLY) Order Sheet Order Sheet [address] [place] [address] [id number] 02/01/2024 Patient: VANITA SANABRIA Sex: Female : 1955 Age: 68y MEASUREMENTS: Wt: 83.9 kg, Ht/Emanuel: 67.0 in, BMI: 28.97 ALLERGIES: No known drug allergies MEDICATION/IV/DRIP/FL UID ORDERS Order Description Priority Entered Acknowledged Completed Benzonatate (Tessalon) PO200 14:30 02/01/2024 14:31 14:53 mg (NOW x1) Antoni Muse D.O. 02/01/2024 02/01/2024 Carly Kaplan, Alfonso.N. R.N. LAB ORDERS Order Description Priority Entered Acknowledged Collected Completed DIAGNOSTIC STUDY ORDERS Order Description Priority Entered Acknowledged Completed Chest 2V Stat Stat 14:30 02/01/2024 14:31 14:47 Antoni Muse D.O. 02/01/2024 02/01/2024 Carly Kaplan, YumiN. R.N. Order Comments: 14:30 02/01/2024: Status: Not . Antoni Muse D.O. Reason for Study: Cough STAFF ORDERS 1 of 2 Order Sheet Order Description Priority Entered Acknowledged Collected Completed [Electronically signed by Antoni Muse D.O. (02/01/2024 15:05 EST)] 2 of 2 Normal [facility] ED PHYSICIAN CLINICAL REPORT on 02-01-2024 ED PHYSICIAN CLINICAL REPORT Narrative Physician Clinical Narrative [address] [address] [id number] 02/01/2024 Patient: VANITA SANABRIA Sex: Female : 1955 Age: 68y Measurements Wt: 83.9 kg, Ht/Emanuel: 67.0 in, BMI: 28.97 Initial Vital Sign Measured Time BP MAP HR RR O2Sat ETCO2 Temp Pain GCS RTS 12:12 02/01/2024 149/109 122 96 18 97% RA 98.2 F 5 Time Seen: 13:01 02/01/2024. HISTORY OF PRESENT ILLNESS Chief Complaint: COUGH, SORE THROAT and SINUS PAIN. The illness is described as mild. The patient has had a cough, a sore throat and nasal congestion. No sputum production, difficulty breathing, chest discomfort or pain or hoarseness. Recent medical care: Not recently seen/assessed. REVIEW OF SYSTEMS : No difficulty with urination. GI: No nausea, vomiting or diarrhea. EYES: No eye discomfort. NEUROLOGICAL: No headache. SKIN: No skin rash. MUSCULOSKELETAL: No joint pain. CVS: No pedal edema or calf pain. ALLERGY/IMMUNO: No hay fever. Status: Not . PAST HISTORY 1 of 4 Narrative Hypertension Surgeries: Cholecystectomy Knee Surgery Medications: lisinopriL 20 mg-hydrochlorothiazid e 12.5 mg tablet: 1 tab once a day . metFORMIN 500 mg tablet: 1000 mg once a day . rosuvastatin 10 mg tablet: 10 mg once a day . Allergies: no known drug allergies SOCIAL HISTORY No alcohol use or drug use. FAMILY HISTORY Negative. ADDITIONAL NOTES The nursing notes have been reviewed. PHYSICAL EXAM Vital Signs: Have been reviewed. Appearance: Alert. No acute distress. Eyes: Pupils equal, round and reactive to light. Eyes normal inspection. ENT: Ears normal. Nose normal. Pharynx normal. Neck: Normal inspection. CVS: Normal heart rate and rhythm. Heart sounds normal. Respiratory: No respiratory distress. Breath sounds normal. Abdomen: Soft and nontender. Skin: Skin warm. Normal skin color. Normal skin turgor. 2 of 4 Narrative Extremities: Extremities exhibit normal ROM. No lower extremity edema. Neuro: Oriented X 3. No motor deficit. LABS, X-RAYS, AND EKG Diagnostic Study Tests: CHEST 2 VIEWS Final EXAM Date: 02/01/2024 14:42:00 EST MsgRcvd: 02/01/2024 14:50 EST [place] [id number] Patient: VANITA SANABRIA Phone#: : 1955 Age: 68 Gender: F Pt. Type: ER Account: [id number] Location: [facility] Ordering: ANTONI MUSE Exam Date: 02/01/2024/14:42 Family Phys: ADOLPH FRENCH Charge Code: 939049 Physician: Attala Order #: [id number] Dose#: PROCEDURE: X-RAY CHEST 2 VIEWS COMPARISON: [facility], XR, CHEST 2 VIEWS, 03/16/2023, 9:10. INDICATIONS: Cough. FINDINGS: LUNGS: Normal. No significant pulmonary parenchymal abnormalities. VASCULATURE: Normal. Unremarkable pulmonary vasculature. CARDIAC: Normal. No cardiac silhouette abnormality or cardiomegaly. MEDIASTINUM: Normal. No visible mass or adenopathy. PLEURA: Normal. No effusion or pleural thickening. BONES: Normal. No fracture or visible bony lesion. OTHER: Negative. CONCLUSION: No acute disease. No significant change has occurred. Dictated by: Itzel Peck MD on 02/01/2024 at 14:46 Approved by: Itzel Peck MD on 02/01/2024 at 14:47 PROGRESS AND PROCEDURES 3 of 4 Narrative MEDICAL DECISION MAKING: (Patient presenting with dry cough for a week. She also has nasal congestion, headache. Symptoms are all fairly mild. Patient states she had trouble sleeping to the cough. She is concerned she might have Pneumonia. Differential includes pneumonia, viral syndrome. I do not believe she needs blood work. Vital signs are stable she is afebrile. We did get a chest x-ray today which interpreted by myself shows no acute process. The radiologist surfaces and agrees. Patient will be given a prescription for Tessalon Perles and follow up with the PCP. Return precautions are discussed.). Disposition: Condition: good. Discharged in good condition. CLINICAL IMPRESSION Acute viral syndrome DISCHARGE INSTRUCTIONS Prescription Medications: benzonatate 200 mg capsule: Take 1 capsule by mouth three times a day as needed for 5 days, dispense 15 capsule. Refills 0. Pharmacy: [facility]/pharmacy #[id number] - [address] ([address]) [place] [address]. Follow-up: Follow up with your healthcare provider. Understanding of the discharge instructions verbalized by patient and parent. (Electronically signed by Antoni Muse D.O. 02/01/24 15:05:05 EST) Generated by [facility] [address] [facility] ED SUPER BILLon 02-01-2024 ED SUPER BILL [place] [address] [place] [address] [id number] 02/01/2024 Patient: VANITA SANABRIA Sex: Female : 1955 Age: 68y Item Professional Category Description Facility Code Code Quantity Fee Total Nurse/E/M EMERGENCY 594710 1 $0.00 $0.00 DEPARTMENT VISIT MODERATE SEVERITY (87981-27) Grand Total $0.00 Providers Antoni Muse D.O. Chief Complaint COUGH, SORE THROAT and SINUS PAIN. Principal Diagnosis Acute viral syndrome ICD-10 Codes 1 of 2 [facility] B34.9: Viral infection, unspecified [address] [facility] ED VISIT SUMMARYon ED VISIT SUMMARY Visit Overview Visit Overview [address] [place] [address] [id number] 02/01/2024 Patient: VANITA SANABRIA Sex: Female : 1955 Age: 68y 02/01/2024 06:25 PM EST ED Arrival:11:54 02/01/2024 EST Status:not Recent Travel:no Language:eng Adv Directive: Isolation Status: Ethnicity:N Fall Risk:risk Infectious Disease Exposure:no Measurements:5'7 / 170.2 Self-Harm Status:risk Sepsis Screen:negative cm 185.0 lb / 83.9 kg Chief Complaint:EAR PAIN, FEVER, HEADACHE, NASAL CONGESTION, SINUS PAIN, SORE THROAT, (about 1 week), (Denies chest pain, SOB, nausea or vomiting. ), and (Dr. Neff) ALLERGIES No Known Drug Allergies HOME MEDICATIONS lisinopriL 20 mg-hydrochlorothiazid e 12.5 mg tablet: 1 tab once a day . metFORMIN 500 mg tablet: 1000 mg once a day . rosuvastatin 10 mg tablet: 10 mg once a day . 1 of 3 Visit Overview PAST MEDICAL HISTORY / PROBLEMS Hypertension PAST SURGICAL HISTORY Cholecystectomy Knee Surgery SOCIAL HISTORY Smoking status: No Alcohol use: No Drug use: No ED COURSE MEDICATIONS GIVEN IN EMERGENCY DEPARTMENT 14:53 02/01/24 Benzonatate (Tessalon) PO 200 mg IV SITE INFORMATION INTAKE OUTPUT REASSESMENT (most recent) 14:36 02/01/24. ( Pt has been sick with sinus congestion, dry hacking cough, for the past week. Pt is concerned for pneumonia.). VITAL SIGNS First Vitals Last Vitals Temp 12:12 02/01/24 98.2 F Temp 12:12 02/01/24 98.2 F BP 12:12 02/01/24 149/109 BP 12:12 02/01/24 149/109 HR 12:12 02/01/24 96 HR 12:12 02/01/24 96 RR 12:12 02/01/24 18 RR 12:12 02/01/24 18 O2 Sat 12:12 02/01/24 97% RA O2 Sat 12:12 02/01/24 97% RA Pain 12:12 02/01/24 5 Pain 12:12 02/01/24 5 ETCO2 12:12 02/01/24 ETCO2 12:12 02/01/24 2 of 3 Visit Overview First Vitals Last Vitals GCS 12:12 02/01/24 GCS 12:12 02/01/24 RTS 12:12 02/01/24 RTS 12:12 02/01/24 PROCEDURES NURSING INTERVENTIONS LABS / STUDIES LABS / STUDIES ORDERED Chest 2V CLINICAL IMPRESSION ACUTE VIRAL SYNDROME 3 of 3 Normal [facility] ED VITALS FLOW SHEETon 01-31 ED VITALS FLOW SHEET Vitals Vital Sign Flow Sheet [facility] [address] [place] [address] [id number] 02/01/2024 Patient: VANITA SANABRIA Sex: Female : 1955 Age: 68y Measurements Wt: 83.9 kg, Ht/Emanuel: 67.0 in, BMI: 28.97 Measured Time BP MAP HR RR O2Sat ETCO2 Temp Pain GCS RTS 12:12 02/01/2024 149/109 122 96 18 97% RA 98.2 F 5 1 of 1 Normal [facility] Basic Metabolic Profile (BMP )on 12-17-2023 BUN/CRE 24.2 RATIO High - [facility] Comment on above: Performed By: #### L 500.4100, L500.2500, L501.9985 #### [facility] Laboratory [address] [place], [address] CA,Total 9.5 mg/dL Normal 8.5-10.1 [facility] Comment on above: Performed By: #### L 500.4100, L500.2500, L501.9985 #### [facility] [address] [place], [address] Chloride [Moles/Vol] 104 mmol/L Normal 98-107 [facility] Comment on above: Performed By: #### L 500.4100, L500.2500, L501.9985 #### [facility] [address] [place], [address] CO2 [Moles/Vol] 28.0 mmol/L Normal 21.0-32.0 [facility] Comment on above: Performed By: #### L 500.4100, L500.2500, L501.9985 #### [facility] [address] [place], [address] Creatinine [Mass/Vol] 0.82 mg/dL Normal 0.55-1.02 [facility] Comment on above: Result Comment: The validity of the calculated GFR GFRAA in patients over 70 years has not been determined. Clinical correlation is essential. Performed By: #### L 500.4100, L500.2500, L501.9985 #### [facility] [address] [place], [address] EST GFR - AA 89 mL/min Normal >60 [facility] Comment on above: Result Comment: Afri can Sudanese GFR Calc Performed By: #### L 500.4100, L500.2500, L501.9985 #### [facility] [address] [place], [address] GAP 5 Normal 5-15 [facility] Comment on above: Performed By: #### L 500.4100, L500.2500, L501.9985 #### [facility] [address] [place], [address] GFR/1.73 sq M.predicted among non-blacks MDRD (S/P/Bld) [Vol rate/Area] 74 mL/min/{1.73_m2} Normal >60 [facility] Comment on above: Result Comment: Non- GFR Calc Performed By: #### L 500.4100, L500.2500, L501.9985 #### [facility] [address] [place], [address] Glucose [Mass/Vol] 162 mg/dL High 74-106 [facility] Comment on above: Result Comment: Fast ing Glucose result greater than or equal to 126 mg/dL suggests DIABETES MELLITUS per A.D.A. criteria. Performed By: #### L 500.4100, L500.2500, L501.9985 #### [facility] [address] [place], [address] Potassium [Moles/Vol] 4.1 mmol/L Normal 3.5-5.1 [facility] Comment on above: Performed By: #### L 500.4100, L500.2500, L501.9985 #### [facility] [address] [place], [address] Sodium [Moles/Vol] 138 mmol/L Normal 136-145 [facility] Comment on above: Performed By: #### L 500.4100, L500.2500, L501.9985 #### [facility] [address] [place], [address] Urea nitrogen [Mass/Vol] 20 mg/dL High - [facility] Comment on above: Performed By: #### L 500.4100, L500.2500, L501.9985 #### [facility] [address] [place], [address] Hemoglobin A1con 12-17-2023 HbA1c (Bld) [Mass fraction] 7.6 % High 3.8-5.6 [facility] Comment on above: Result Comment: Norm al < 5.7 % Prediabetic 5.7 - 6.4 % Diabetic >or= 6.5 % Please note range changes. Performed By: #### L 500.4100, L500.2500, L501.9985 #### [facility] [address] [place], [address] Lipid Profileon 12-17-2023 Cholesterol [Mass/Vol] 181 mg/dL Normal 200 [facility] Comment on above: Result Comment: <200 mg/dL Desirable 200-240 mg/dL Borderline >240 mg/dL High Risk Performed By: #### L 500.4100, L500.2500, L501.9985 #### [facility] [address] [place], [address] Cholesterol in HDL [Mass/Vol] 43 mg/dL Normal [facility] Comment on above: Result Comment: The drugs N-Acetylcysteine and Metamizole may falsely depress this assay. Reference Range HDL <40 mg/dL Low HDL Cholesterol HDL >or= 60 mg/dL High HDL Cholesterol Performed By: #### L 500.4100, L500.2500, L501.9985 #### [facility] [address] [place], [address] Cholesterol in LDL [Mass/Vol] 97 mg/dL Normal 0-130 [facility] Comment on above: Performed By: #### L 500.4100, L500.2500, L501.9985 #### [facility] [address] [place], [address] Cholesterol in VLDL [Mass/Vol] 41 mg/dL High 5-40 [facility] Comment on above: Performed By: #### L 500.4100, L500.2500, L501.9985 #### [facility] [address] [place], [address] Triglyceride [Mass/Vol] 204 mg/dL High [facility] Comment on above: Result Comment: The drugs N-Acetylcysteine and Metamizole may falsely depress this assay. Serum Triglycerides Reference Interval Normal <150 mg/dL Borderline high 150 - 199 mg/dL High 200 - 499 mg/dL Very High > or = 500 mg/dL Performed By: #### L 500.4100, L500.2500, L501.9985 #### [facility] [address] [place], [address] Whole blood hemoglobin A1c/t otal hemoglobin ratio (mass fraction)Ordered By: Adolph French on 12-30-2022 HbA1c (Bld) [Mass fraction] 7.4 % 3.8-5.6 [facility] Comment on above: Normal < 5.7 % Predi abetic 5.7 - 6.4 % Diabetic >or= 6.5 % Please note range changes. Absolute lymphocyte counton 02-18-2022 Lymphocytes Auto (Unsp spec) [#/Vol] 1.68 10*3/uL 0.83-4.51 [facility] Work Phone: Basophil percentageon 2021 Basophils/100 WBC (Bld) 1.2 % 0-1 [facility] Work Phone: Chloride [Moles/Vol] 102 mmol/L 98-107 [facility] Work Phone: Cholesterol [Mass/Vol] 230 mg/dL <200 [facility] Work Phone: Comment on above: <200 mg/dL Desirable 200-240 mg/dL Borderline >240 mg/dL High Risk Eosinophils/100 WBC (Bld) 3.6 % 0-5 [facility] Work Phone: Glucose [Mass/Vol] 158 mg/dL 74-106 [facility] Work Phone: Comment on above: Fasting Glucose resu lt greater than or equal to 126 mg/dL suggests DIABETES MELLITUS per A.D.A. criteria. Neutrophils (Bld) [#/Vol] 4.3 10*3/uL 2.0-7.7 [facility] Work Phone: Neutrophils/100 WBC (Bld) 62.7 % 47-70 [facility] Work Phone: Potassium [Moles/Vol] 4.1 mmol/L 3.5-5.1 [facility] Work Phone: Sodium [Moles/Vol] 138 mmol/L 136-145 [facility] Work Phone: Triglyceride [Mass/Vol] 214 mg/dL <199 [facility] Work Phone: Comment on above: The drugs N-Acetylcy steine and Metamizole may falsely depress this assay.Serum Triglycerides Reference Interval Normal <150 mg/dL Borderline high 150 - 199 mg/dL High 200 - 499 mg/dL Very High > or = 500 mg/dL WBC (Bld) [#/Vol] 6.9 10*3/uL 4.4-11.0 [facility] Work Phone: Blood erythrocytes count (nu mber/volume)on 02-18-2022 RBC (Bld) [#/Vol] 5.40 10*6/uL 4.2-5.4 [facility] Work Phone: Blood hemoglobin measurement (mass/volume)on 02-18-2022 Hemoglobin (Bld) [Mass/Vol] 15.4 g/dL 12.0-15.0 [facility] Work Phone: Blood lymphocytes/100 leukoc yteson 02-18-2022 Lymphocytes/100 WBC (Bld) 24.3 % 19-41 [facility] Work Phone: Blood monocytes/100 leukocyt eson 02-18-2022 Monocytes/100 WBC (Bld) 8.1 % 0-10 [facility] Work Phone: Blood platelet mean volumeon 02-18-2022 Platelet mean volume (Bld) [Entitic vol] 9.7 fL 6.2-12.0 [facility] Work Phone: Determination of erythrocyte mean corpuscular volume (MCV)on 02-18-2022 MCV (RBC) [Entitic vol] 83.1 fL 81-99 [facility] Work Phone: Hematocrit Auto (Bld) [Volum e fraction]on 02-18-2022 Hematocrit (Bld) [Volume fraction] 44.9 % 37-47 [facility] Work Phone: Laboratory - Chemistry and C hemistry - challengeon 02-18-2022 CO2 [Moles/Vol] 26.0 mmol/L 21.0-32.0 [facility] Work Phone: Urea nitrogen/Creatinine [Mass ratio] 21.4 mg/mg 12-19 [facility] Work Phone: Laboratory - Hematology and Cell countson 02-18-2022 Erythrocyte distribution width (RBC) [Entitic vol] 39.1 fL 35.1-43.9 [facility] Work Phone: Erythrocyte distribution width (RBC) [Ratio] 13.0 % 11.6-14.6 [facility] Work Phone: Immature granulocytes/100 WBC (Bld) 0.100 % 0.0-0.9 [facility] Work Phone: Comment on above: IG% - Immature Granu locytes (promyelocytes, myelocytes and metamyelocytes) > 1% indicates that a LEFT SHIFT is Present. MCH (RBC) [Entitic mass] 28.5 pg 27.0-32.0 [facility] Work Phone: Nucleated RBC/100 WBC (Bld) [Ratio] 0 % 0-5 [facility] Work Phone: MCHC Auto (RBC) [Mass/Vol]on 02-18-2022 MCHC (RBC) [Mass/Vol] 34.3 g/dL 32-36 [facility] Work Phone: No Panel Informationon 02-18 Estimated GFR (MDRD) Amer 88 mL/min >60 [facility] Work Phone: Comment on above: GFR Calc Estimated GFR (MDRD) Non-Af Amer 72 mL/min >60 [facility] Work Phone: Comment on above: Non- GFR Calc Thyroid Stimulating Hormone (TSH) 0.66 uIU/mL 0.358-3.74 [facility] Work Phone: Urine Microalbumin/Creatin ine Ratio 11.5 mg/g CRE <30 [facility] Work Phone: Platelets bldon 02-18-2022 Platelets (Bld) [#/Vol] 295 10*3/uL 150-450 [facility] Work Phone: Serum or plasma calcium ho urement (mass/volume)on 02-18-2022 Calcium [Mass/Vol] 9.5 mg/dL 8.5-10.1 [facility] Work Phone: Serum or plasma cholesterol in HDL measurement (mass/volume)on 02-18-2022 Cholesterol in HDL [Mass/Vol] 41 mg/dL >40 [facility] Work Phone: Comment on above: The drugs N-Acetylcy steine and Metamizole may falsely depress this assay. Reference Range HDL <40 mg/dL Low HDL Cholesterol HDL >or= 60 mg/dL High HDL Cholesterol Serum or plasma cholesterol in VLDL measurement (mass/volume)on 02-18-2022 Cholesterol in VLDL [Mass/Vol] 43 mg/dL 5-40 [facility] Work Phone: Serum or plasma creatinine m easurement (mass/volume)on 02-18-2022 Creatinine [Mass/Vol] 0.84 mg/dL 0.55-1.02 [facility] Work Phone: Comment on above: The validity of the calculated GFR & GFRAA in patients over 70 years has not been determined. Clinical correlation is essential. Serum or plasma low density lipoprotein (LDL) cholesterol measurement (mass/volume)on 02-18-2022 Cholesterol in LDL [Mass/Vol] 146 mg/dL 0-130 [facility] Work Phone: Serum or plasma urea nitroge n measurement (mass/volume)on 02-18-2022 Urea nitrogen [Mass/Vol] 18 mg/dL 7-18 [facility] Work Phone: Thin prep Papanicolaou smear with manual screeningon 02-18-2022 Thin prep Papanicolaou smear with manual screening 10 5-15 [facility] Work Phone: Thin prep Papanicolaou smear with manual screening 20.4 mg/L NO RANGE EST. [facility] Work Phone: Urine creatinine measurement (mass/volume)on 02-18-2022 Creatinine (U) [Mass/Vol] 178.00 mg/dL NO RANGE EST. [facility] Work Phone: HepB SurfaceAb,[place] 09-21 HepB SurfaceAb,Quant 9.58 mIU/mL High <8.00 [facility] Lab Comment on above: Performed By: #### A HBSQ #### [facility] [address] [place], [place] [address] HepB SurfaceAb,[place] 08-25 HepB SurfaceAb,Quant 10.63 mIU/mL High <8.00 [facility] Reference [facility] Comment on above: Performed By: #### A HBSQ #### [facility] [address] [place] [phone] HepB SurfaceAb,[place] 12-24 HepB SurfaceAb,Quant <8.00 Normal <8.00 [facility] Reference Lab Comment on above: Performed By: #### M UMPSG, RUBIGG, MEASLG, AHBSQ #### [facility] Routine Lab [address] [place] [phone] Measles IgG Antibodyon 12-24 Measles IgG Ab, Qual Abnormal Negative [facility] Reference Lab Comment on above: Result Comment: Posi tive Presence of detectable measles virus IgG antibodies. A positive result generally indicates exposure to measles virus or previous vaccination. Performed By: #### M UMPSG, RUBIGG, MEASLG, AHBSQ #### [facility] Routine Lab [address] [place] [phone] Measles IgG Antibody >300.0 Normal [facility] Reference Lab Comment on above: Performed By: #### M UMPSG, RUBIGG, MEASLG, AHBSQ #### [facility] Routine Lab [address] [place] [phone] Mumps IgG Abon 12-24-2018 Mumps IgG Ab >300.0 Normal [facility] Comment on above: Performed By: #### M UMPSG, RUBIGG, MEASLG, AHBSQ #### [facility] Routine Lab [address] [place] [phone] Mumps IgG, Qual Positive Abnormal Negative [facility] Reference [facility] Comment on above: Performed By: #### M UMPSG, RUBIGG, MEASLG, AHBSQ #### [facility] Routine Lab [address] [phone] Rubella IgG Antibodyon 12-24 Rubella IgG Ab 25.00 Index Value Normal [facility] Reference Lab Comment on above: Performed By: #### M UMPSG, RUBIGG, MEASLG, AHBSQ #### [facility] Routine Lab [address] [place], [place] [address] Rubella IgG Ab, Qual Positive Abnormal Negative [facility] Reference Lab Comment on above: Performed By: #### M UMPSG, RUBIGG, MEASLG, AHBSQ #### [facility] Routine Lab [address] [place], [place] [id number] Auto Diffon 11-17-2017 Basophils Auto #/vol (Bld) 0.1 E3/mcL Normal 0.0-0.2 [facility] Comment on above: Order Comment: Order Added by Discern Expert. Performed By: #### 2 [id number] ####SUSAN CharlesGveNfmh6582 [place] [address] Basophils/100 WBC Auto (Bld) 0.6 % Normal 0.0-2.0 [facility] Comment on above: Order Comment: Order Added by Discern Expert. Performed By: #### 2 [id number] ####SUSAN CharlesMzaPhyg2901 [place] [address] Eos Absolute 0.1 E3/mcL Normal 0.0-0.7 [facility] Comment on above: Order Comment: Order Added by Discern Expert. Performed By: #### 2 [id number] ####SUSANEly CharlesHpjHzmx5687 [place], [place] Eosinophils/100 WBC Auto (Bld) 1.4 % Normal 0.0-11.0 [facility] Comment on above: Order Comment: Order Added by Discern Expert. Performed By: #### 2 [id number] ####SUSAN QwmEjha7158 [place] [address] Lymphocytes Auto #/vol (Bld) 1.5 E3/mcL Normal 1.2-3.4 [facility] Comment on above: Order Comment: Order Added by Discern Expert. Performed By: #### 2 [id number] ####SUSANEly CharlesBzsIhxf3806 [place] [address] Lymphocytes/100 WBC Auto (Bld) 15.0 % Low 20.0-55.0 [facility] Comment on above: Order Comment: Order Added by Discern Expert. Performed By: #### 2 [id number] ####SUSAN Maco1025 [place] [address] [place] Absolute 0.7 E3/mcL Normal 0.0-0.7 [facility] Comment on above: Order Comment: Order Added by Discern Expert. Performed By: #### 2 861274 ####SUSAN Maco[address] [place] [address] Monocytes/100 WBC Auto (Bld) 7.4 % Normal 0.0-10.0 [facility] Comment on above: Order Comment: Order Added by Discern Expert. Performed By: #### 2 [id number] ####SUSAN Maco[address] [place] [address] Neutro Absolute 7.6 E3/mcL High 1.4-6.5 [facility] Comment on above: Order Comment: Order Added by Discern Expert. Performed By: #### 2 [id number] ####SUSAN Maco[address] [place] [address] Neutro Auto 75.6 % High 37.0-75.0 [facility] Comment on above: Order Comment: Order Added by Discern Expert. Performed By: #### 2 [id number] ####SUSAN CharlesMxdSnln2869 [place] [address] BMPon 11-17-2017 Calcium mass conc 9.4 mg/dL Normal 8.4-10.2 [facility] Comment on above: Performed By: #### 2 311704 ####SUSAN SpbWrhu5623 [place] [address] Chloride molar conc 102 mmol/L Normal 98-107 [facility] Comment on above: Performed By: #### 2 515454 ####SUSAN CharlesLyxRoga0420 [place] [address] CO2 molar conc 25.1 mmol/L Normal 24.0-30.0 [facility] Comment on above: Performed By: #### 2 881109 ####SUSAN ImcXxpx8722 [place] [address] Creatinine mass conc 1.1 mg/dL Normal 0.6-1.3 [facility] Comment on above: Performed By: #### 2 028116 ####SUSAN CharlesKdkYtsk6382 [place] [address] Glucose mass conc 203 mg/dL High 70-99 [facility] Comment on above: Performed By: #### 2 688791 ####SUSAN Olivares[address] [place] [address] Potassium molar conc 3.7 mmol/L Normal 3.5-5.1 [facility] Comment on above: Performed By: #### 2 734832 ####SUSAN Olivares[address] [place] [address] Sodium molar conc 138 mmol/L Normal 136-145 [facility] Comment on above: Performed By: #### 2 317977 ####SUSAN [address]ares[address] [place] [address] Urea nitrogen mass conc 21 mg/dL High 7-18 [facility] Comment on above: Performed By: #### 2 119296 ####SUSAN Olivares[address] [place] [address] Urea nitrogen/Creatinine mass ratio 19.1 ratio Normal 5.4-30.0 [facility] Comment on above: Performed By: #### 2 457336 ####SUSAN CharlesYotCcdx6250 [place] [address] CBC w/ Auto Diffon 8 Erythrocyte distribution width Auto Ratio (RBC) 14.0 % Normal 11.5-14.5 [facility] Comment on above: Performed By: #### 2 858449 ####SUSAN CharlesKhfNaoh5680 [place] [address] Hematocrit Auto Volume Fraction (Bld) 43.4 % Normal 36.0-48.0 [facility] Comment on above: Performed By: #### 2 396401 ####SUSAN CharlesLjzKurl2086 [place] [address] Hemoglobin mass conc (Bld) 14.7 g/dL Normal 12.0-16.0 [facility] Comment on above: Performed By: #### 2 829749 ####SUSAN CharlesTebRfzh5599 [place] [address] MCH Auto Entitic mass (RBC) 28.5 pg Normal 27.0-31.0 [facility] Comment on above: Performed By: #### 2 080862 ####SUSAN CharlesMmfTnpd7779 [place] [address] MCHC Auto mass conc (RBC) 33.8 g/dL Normal 33.0-37.0 [facility] Comment on above: Performed By: #### 2 429096 ####SUSAN CharlesPejFfpu5265 [place] [address] MCV Auto Entitic volume (RBC) 84.2 fL Normal 78.0-100.0 [facility] Comment on above: Performed By: #### 2 951314 ####SUSAN CharlesPewMrrx7588 [place] [address] Platelet mean volume Auto Entitic volume (Bld) 7.5 fL Normal 7.4-11.0 [facility] Comment on above: Performed By: #### 2 482668 ####SUSAN CharlesSiuFdku9729 [place] [address] Platelets Auto #/vol (Bld) 292 E3/mcL Normal 130-400 [facility] Comment on above: Performed By: #### 2 740273 ####SUSAN CharlesGusMsva9046 [place] [address] RBC Auto #/vol (Bld) 5.15 E6/mcL Normal 3.90-5.40 [facility] Comment on above: Performed By: #### 2 904488 ####SUSAN CharlesXvmQuyj5988 [place] [address] WBC Auto #/vol (Bld) 10.0 E3/mcL Normal 3.6-11.0 [facility] Comment on above: Performed By: #### 2 573212 ####SUSAN CharlesAktKfqz2024 [place] [address] Troponin-Ion 11-17-2017 Troponin I.cardiac mass conc ng/mL Normal .00-.03 [facility] Comment on above: Performed By: #### 2 306034 ####SUSAN AngAbfx5082 [place] [address] eGFRon 11-17-2017 eGFR AA >60 Normal [facility] Comment on above: Order Comment: Order added by Discern Expert. Performed By: #### 1 [id number] ####SUSAN UsrAfbj5117 [place] [address] GFR/1.73 sq M predicted among non-blacks MDRD vol rate/area (S/P/Bld) 51 mL/min/1.73 m2 Normal [facility] Comment on above: Order Comment: Order added by Discern Expert. Performed By: #### 1 [id number] ####SUSAN TaoKlgk9495 [place] [address] Vital Signs Date Time Vital Sign Value Performing Clinician Chapin ritter 02-18-2022 10:06-0500 Body height 170.18 cm [facility] [place] [facility] Work Phone: Encounters Encounter Date Encounter Type Care Provider Facility Start: 12-15-2024 End: 12-15-2024 ambulatory [facility] Facility:[facility] Start: 12-15-2024 End: 12-15-2024 ambulatory [facility] Start: 12-08-2024 End: 12-08-2024 ambulatory [facility] Start: 02-01-2024 End: 02-01-2024 Emergency department patient visit [facility] Start: 01-08-2024 Encounter for genera l adult medical examination without abnormal findings [facility] Start: 12-17-2023 End: 12-17-2023 ambulatory [facility] Facility:[facility] Start: 12-30-2022 End: 12-30-2022 ambulatory [facility] Work Phone: Start: 12-30-2022 End: 12-30-2022 Patient encounter procedure [facility] Work Phone: Start: 02-18-2022 End: 02-18-2022 ambulatory [facility] Work Phone: Start: 02-18-2022 End: 02-18-2022 Patient encounter procedure [facility] Start: 11-17-2017 End: 11-17-2017 Emergency department patient visit [facility] Facility:[facility] Payers Date Payer Category Payer Self-pay [id number] 2023 Unknown [id number] 2017 Unknown 1955 Unknown [id number] 2.16.8 [id number] 1955 Unknown [id number] 2.16.8 [id number] 1955 Unknown [id number] 2.16.8 [id number] Unknown [employer] [id number] Unknown [facility] [employer] [id number] Unknown R DARIELA [id number] Unknown COMMERCIAL OTHER [id number] Unknown [facility] [id number] Unknown [id number] 2.16.8 [id number] Social History Date Type Detail Facility Start: 09-29-2014 End: 09-29-2014 Tobacco smoking status NHIS Unknown if ever smoked [facility] Start: 1955 Sex Assigned At Female W [facility] Progress note 12-15-2024 Note Date & Type Note Facility 12-15-2024 Note HNO ID: [id number] Author: SARINA MARVIN APRN.TERRESTRIAL ECOLOGIST Service: ? Author Type: Nurse Practitioner Type: Progress Notes Filed: 12/15/2024 14:55 Note Text: URGENT CARE [facility] Vanita Sanabria is a 69 year old female. Patient presents with: Vaginal Problem HPI Review of Systems PAST MEDICAL HISTORY Diagnosis Date Hypertension No pertinent past medical history healthy PAST SURGICAL HISTORY Procedure Laterality Date CHOLEYCYSTOGRAM GALL BLADDER LIG/TRNSXJ FLP TUBE ABDL/VAG APPR UNI/BI ALLERGIES Patient has no known allergies. MEDICATIONS lisinopril-hydroCHLOROthiazide (ZESTORETIC) 20-12.5 mg per tablet Take 1 tablet by mouth once daily. rosuvastatin (CRESTOR) 10 mg tablet Take 1 tablet by mouth once daily. metFORMIN (GLUCOPHAGE) 1,000 mg tablet Take 1,000 mg by mouth daily with breakfast. fluconazole (DIFLUCAN) 150 mg tablet Take 1 tablet by mouth one time only for 1 dose. Not completely resolved at 72 hours take another dose. ranitidine (ZANTAC) 150 mg tablet Take 1 tablet by mouth twice daily. dicyclomine (BENTYL) 20 mg tablet Take 1 tablet by mouth every 6 hours. FAMILY HISTORY Problem Relation Age of Onset Heart Mother Hypertension Father Diabetes Sister Diabetes Brother SOCIAL HISTORY[1] Objective BP 129/86 Pulse 95 Temp 37.2 ?C (98.9 ?F) Resp 20 Wt 86 kg (189 lb 9.5 oz) LMP 12/08/2010 SpO2 97% BMI 30.14 kg/m? Physical Exam Constitutional: General: She is not in acute distress. Appearance: Normal appearance. She is normal weight. She is not ill-appearing or toxic-appearing. HENT: Head: Normocephalic and atraumatic. Cardiovascular: Rate and Rhythm: Normal rate and regular rhythm. Heart sounds: Normal heart sounds. Pulmonary: Effort: Pulmonary effort is normal. Breath sounds: Normal breath sounds. Abdominal: General: There is no distension. Palpations: There is no mass. Tenderness: There is no abdominal tenderness. There is no right CVA tenderness, left CVA tenderness, guarding or rebound. Hernia: No hernia is present. Neurological: Mental Status: She is alert. { 1. Burning with urination (R30.0) 2. Acute vaginitis (N76.0) 3. Possible exposure to STI (Z20.2) - Urine dipstick showed leukocytes, and blood; no nitrites present. Dip and HPI consistent with vaginitis. - Burning likely due to vaginal irritation from yeast infection rather than UTI. - Urine culture and vaginal swabs obtained; will call with results and adjust treatment if necessary. - Start oral Diflucan for yeast infection; instructed to take one dose now and a second dose in 72 hours if symptoms are not completely resolved. - No signs of pylonephritis, acute surgical abdomen, or pelvic pain,. - Educated on the risks of unnecessary antibiotic use potentially worsening yeast infection. - Will call with preliminary urine culture and vaginal swab results tomorrow; will initiate antibiotics if urine culture is positive. and Recording using [employer] software for draft documentation of the visit was discussed with the patient/authorized inside sales representative; all questions welcomed and answered. Patient/authorized inside sales representative agreed to proceed History and Record Review External record(s) reviewed: prior outpatient record. Findings from review of outpatient records: Previous medical history Disposition The patient was discharged. [1] Social History Tobacco Use Smoking status: Never Smokeless tobacco: Never Substance Use Topics Alcohol use: No Drug use: No [facility] Clinical Note 02-01-2024 Note Date & Type Note Facility 02-01-2024 Note Discharge Instructio ns Discharge Summary [address] [place] [address] [id number] 02/01/2024 Patient: VANITA SANABRIA Sex: Female : 1955 Age: 68y Thank you for visiting [facility]. You have been evaluated today by Antoni Muse D.O. for the following condition(s): Principal Diagnosis Acute viral syndrome INSTRUCTIONS Prescription Medications: benzonatate 200 mg capsule: Take 1 capsule by mouth three times a day as needed for 5 days, dispense 15 capsule. Refills 0. Pharmacy: [facility] #[id number] - [address] [address] [place] [address]. Follow-up: Follow up with your healthcare provider. Understanding of the discharge instructions verbalized by patient and parent. You have been given the following additional information: Viral Syndrome (Adult) Patient Signature 1 of 4 Discharge Instructions Facility Range Manager Date/Time General Instructions with ExitWriter [address] [address] [id number] 02/01/2024 Patient: SANABRIA, VANITA Sex: Female : 1955 Age: 68y Thank you for visiting [facility]. You have been evaluated today by Antoni Muse D.O. for the following condition(s): Principal Diagnosis Acute viral syndrome INSTRUCTIONS Prescription Medications: benzonatate 200 mg capsule: Take 1 capsule by mouth three times a day as needed for 5 days, dispense 15 capsule. Refills 0. Pharmacy: [facility]/pharmacy #[id number] - [address] [facility] ([address]) [place] [address]. Follow-up: Follow up with your healthcare provider. Understanding of the discharge instructions verbalized by patient and parent. ADDITIONAL INFORMATION 2 of 4 Discharge Instructions Viral Syndrome (Adult) A viral illness may cause a number of symptoms such as fever. Other symptoms depend on the part of the body that the virus affects. If it settles in your nose, throat, and lungs, it may cause cough, sore throat, congestion, runny nose, headache, earache and other ear symptoms, or shortness of breath. If it settles in your stomach and intestinal tract, it may cause nausea, vomiting, cramping, and diarrhea. Sometimes it causes generalized symptoms like aching all over, feeling tired, loss of energy, or loss of appetite. A viral illness usually lasts anywhere from several days to several weeks, but sometimes it lasts longer. In some cases, a more serious infection can look like a viral syndrome in the first few days of the illness. You may need another exam and additional tests to know the difference. Watch for the warning signs listed below for when to seek medical advice. Home care Follow these guidelines for taking care of yourself at home: If symptoms are severe, rest at home for the first 2 to 3 days. Stay away from cigarette smoke - both your smoke and the smoke from others. You may use [id number] acetaminophen or ibuprofen for fever, muscle aching, and headache, unless another medicine was prescribed for this. If you have chronic liver or kidney disease or ever had a stomach ulcer or gastrointestinal bleeding, talk with your healthcare provider before using these medicines. No one who is younger than 18 and ill with a fever should take aspirin. It may cause severe disease or . Your appetite may be poor, so a light diet is fine. Avoid dehydration by drinking 8 to 12, 8-ounce glasses of fluids each day. This may include water; orange juice; lemonade; apple, grape, and cranberry juice; clear fruit drinks; electrolyte replacement and sports drinks; and decaffeinated teas and coffee. If you have been diagnosed with a kidney disease, ask your healthcare provider how much and what types of fluids you should drink to prevent dehydration. If you have kidney disease, drinking too much fluid can cause it build up in the your body and be dangerous to your health. Urpk-ntt-lnppsuz remedies won't shorten the length of the illness but may be helpful for symptoms such as cough, sore throat, nasal and sinus congestion, or diarrhea. Don't use decongestants if you have high blood pressure. Follow-up care Follow up with your healthcare provider if you do not improve over the next week. 3 of 4 Discharge Instructions Call 911 Call 911 if any of the following occur: Convulsion Feeling weak, dizzy, or like you are going to faint Chest pain, or more than mild shortness of breath When to seek medical advice Call your healthcare provider right away if any of these occur: Cough with lots of colored sputum (mucus) or blood in your sputum Chest pain, shortness of breath, wheezing, or trouble breathing Severe headache; face, neck, or ear pain Severe, cons (more content not included)... [facility] Evaluation note Note Date & Type Note Facility Evaluation note No assessment information availa [facility] Work Phone: Summary Purpose Family History No Family History Records FoundNo Family History Records FoundNo Family History Records FoundNo Family History Records FoundNo Family History Records Found Advance Directives No Advanced Directives Records Found Advance Directive Response Recorded Date/ Time Advance Directives No June 20 014 7:51am Living Will No June 20, 2013 7:51am Power of Advisor [employer] No June 20 7:51am Advance Directive Response Recorded Date/ Time Advance Directives No June 20 014 8:51am Living Will No June 20, 2013 8:51am Power of Advisor [employer] No June 20 14 8:51am Chief Complaint and Reason for Visit Chief Complaint EORDER Additional Source Comments INFORMATION SOURCE (unrecogn ized section and content) DATE CREATED AUTHOR 12/14/2017 [facility] DATE CREATED AUTHOR AUTHOR'S ORGANIZ ATION 09/25/2019 [facility] DATE CREATED AUTHOR AUTHOR'S ORGANIZ ATION 01/10/2024 [facility] DATE CREATED AUTHOR AUTHOR'S ORGANIZ ATION 12/17/2024 [facility] DATE CREATED AUTHOR AUTHOR'S ORGANIZ ATION 12/17/2024 [facility] Goals (unrecognized section and content) Goals may be documented in a n alternate sectionGoals may be documented in an alternate section Care Teams (unrecognized sec tion and content) Team Status: Active Member Role Status Dates Dr. Adolph French MD Family Provider Active Dr. Adolph French MD Primary Care Provider Active Team Status: Inactive Member Role Status Dates Dr. Adolph French MD Primary Care Provi jasbir, Attending Provider, Referring Provider Active FOR RECORDS PERTAINING TO PATIENTS WHO ARE OR HAVE BEEN ENROLLED IN A CHEMICAL DEPENDENCY/SUBSTANCEABUSE PROGRAM, SOME INFORMATION MAY BE OMITTED. This clinical summary was aggregated from multiple sources. Caution should be exercised in using it in the provision of clinical care. This summary normalizes information from multiple sources, and as a consequence, information in this document may materially change the coding, format and clinical context of patient data. In addition, data may be omitted in some cases. CLINICAL DECISIONS SHOULD BE BASED ON THE PRIMARY CLINICAL RECORDS. [employer] provides no warranty or guarantee of the accuracy or completeness of information in this document.
== END | disposition home or self-care (01) ==
LOC: MFPLAB 16:17 → LABSPEC 16:19
PROVIDERS: PCP Family Medicine
DX: N39.0 Urinary tract infection, site not specified (principal)
CPT/HCPCS: 87086; 87088